=== PATIENT | female | born 1930 | race Caucasian/White ===

== ENCOUNTER 2017-11-20 11:16 | Emergency (ER) | payer OTHER ==
[2017-11-20 11:51] LABS: BASO % 0.5 % (0.0-1.0); EOS # 0.1 10^3/uL (0.0-0.50); EOS % 1.7 % (0.0-3.0); HEMATOCRIT 38.4 % (36.0-47.0); HEMOGLOBIN 13.2 g/dl (12.0-15.5); IMMATURE GRANULOCYTE % 0.2 % (0-3.0); LYMPH # 1.8 10^3/uL (1.5-4.5); LYMPH % 29.6 % (24.0-44.0); MEAN CORPUSCULAR HEMOGLOBIN 31.7 pg (27.0-33.0); MEAN CORPUSCULAR HGB CONC 34.4 g/dl (32.0-36.5); MEAN CORPUSCULAR VOLUME 92.1 fl (80.0-96.0); MONO # 0.6 10^3/uL (0.0-0.8); MONO % 9.3 % (0.0-5.0); NEUTROPHILS # 3.5 10^3/uL (1.8-7.7); NEUTROPHILS % 58.7 % (36.0-66.0); PLATELET COUNT, AUTOMATED 165 10^3/uL (150-450); RED BLOOD COUNT 4.17 10^6/uL (4.00-5.40); RED CELL DISTRIBUTION WIDTH 11.7 % (11.5-14.5)
[2017-11-20 12:03] LABS: PROTHROMBIN TIME 13.3 SECONDS (12.4-14.5)
[2017-11-20 12:16] LABS: ALBUMIN/GLOBULIN RATIO 1.05 (1.00-1.93); ALKALINE PHOSPHATASE 72 U/L (45-117); ALT/SGPT 23 U/L (12-78); ANION GAP 8 MEQ/L (8-16); AST/SGOT 21 U/L (7-37); BILIRUBIN,DIRECT 0.2 MG/DL (0.0-0.2); BILIRUBIN,TOTAL 0.6 MG/DL (0.2-1.0); BLOOD UREA NITROGEN 24 MG/DL (7-18); CALCIUM LEVEL 8.7 MG/DL (8.8-10.2); CARBON DIOXIDE LEVEL 28 MEQ/L (21-32); CHLORIDE LEVEL 102 MEQ/L (98-107); CPK CREATINE PHOSPHOKINASE 127 U/L (26-192); CREATININE FOR GFR 0.99 MG/DL (0.55-1.30); GLOMERULAR FILTRATION RATE 56.8 (>32); GLUCOSE, FASTING 115 MG/DL (70-100); LIPASE 241 U/L (73-393); POTASSIUM SERUM 4.5 MEQ/L (3.5-5.1); SODIUM LEVEL 138 MEQ/L (136-145); TOTAL PROTEIN 7.8 GM/DL (6.4-8.2); TROPONIN I < 0.02 NG/ML (< 0.10)
[2017-11-20 12:22] LABS: CK-MB VALUE MASS 3.2 NG/ML (<3.6); MB/CK RELATIVE INDEX 2.51 (< OR =4); NT-PRO BNP 475 PG/ML (<450)
[2017-11-20] MEDS: NS 500 ML IV (12:30)
[2017-11-20] MEDS: SUCRALFATE SUSP 1GM/10ML UD PO (13:05)
[2017-11-20 18:30] LABS: CPK CREATINE PHOSPHOKINASE 110 U/L (26-192); TROPONIN I < 0.02 NG/ML (< 0.10)
[2017-11-20 18:31] LABS: CK-MB VALUE MASS 2.9 NG/ML (<3.6); MB/CK RELATIVE INDEX 2.63 (< OR =4)
== END 2017-11-20 18:47 | disposition home or self-care (01) ==
LOC: M ED 11:16
DX: R07.9 Chest pain, unspecified (principal); R22.2 Localized swelling, mass and lump, trunk; I10 Essential (primary) hypertension; E87.5 Hyperkalemia; Z87.891 Personal history of nicotine dependence; Z79.82 Long term (current) use of aspirin; Z79.899 Other long term (current) drug therapy; Z88.2 Allergy status to sulfonamides
CPT/HCPCS: 71045

== ENCOUNTER 2018-01-15 11:04 | Emergency (ER) | payer OTHER ==
[2018-01-15 11:39] LABS: BASO % 0.4 % (0.0-1.0); EOS # 0.1 10^3/uL (0.0-0.50); EOS % 1.3 % (0.0-3.0); HEMATOCRIT 39.4 % (36.0-47.0); HEMOGLOBIN 13.5 g/dl (12.0-15.5); IMMATURE GRANULOCYTE % 0.3 % (0-3.0); LYMPH # 1.8 10^3/uL (1.5-4.5); LYMPH % 26.5 % (24.0-44.0); MEAN CORPUSCULAR HEMOGLOBIN 32.2 pg (27.0-33.0); MEAN CORPUSCULAR HGB CONC 34.3 g/dl (32.0-36.5); MONO # 0.5 10^3/uL (0.0-0.8); MONO % 7.2 % (0.0-5.0); NEUTROPHILS # 4.4 10^3/uL (1.8-7.7); NEUTROPHILS % 64.3 % (36.0-66.0); PLATELET COUNT, AUTOMATED 159 10^3/uL (150-450); RED BLOOD COUNT 4.19 10^6/uL (4.00-5.40); RED CELL DISTRIBUTION WIDTH 11.4 % (11.5-14.5); WHITE BLOOD COUNT 6.8 10^3/uL (4.0-10.0)
[2018-01-15 11:42] LABS: INR 1.18; PROTHROMBIN TIME 15.2 SECONDS (12.1-14.4)
[2018-01-15 11:43] LABS: PARTIAL THROMBOPLASTIN TIME 30.6 SECONDS (25.4-37.6)
[2018-01-15 11:54] LABS: ALBUMIN 3.8 GM/DL (3.2-5.2); ALBUMIN/GLOBULIN RATIO 0.93 (1.00-1.93); ALKALINE PHOSPHATASE 63 U/L (45-117); ALT/SGPT 21 U/L (12-78); ANION GAP 7 MEQ/L (8-16); AST/SGOT 22 U/L (7-37); BILIRUBIN,DIRECT 0.1 MG/DL (0.0-0.2); BILIRUBIN,TOTAL 0.5 MG/DL (0.2-1.0); BLOOD UREA NITROGEN 23 MG/DL (7-18); CALCIUM LEVEL 8.8 MG/DL (8.8-10.2); CARBON DIOXIDE LEVEL 28 MEQ/L (21-32); CHLORIDE LEVEL 101 MEQ/L (98-107); CPK CREATINE PHOSPHOKINASE 91 U/L (26-192); CREATININE FOR GFR 1.09 MG/DL (0.55-1.30); FREE T4 0.85 NG/DL (0.76-1.46); GLOMERULAR FILTRATION RATE 50.8 (>32); GLUCOSE, FASTING 105 MG/DL (70-100); LIPASE 179 U/L (73-393); SODIUM LEVEL 136 MEQ/L (136-145); TOTAL PROTEIN 7.9 GM/DL (6.4-8.2); TROPONIN I < 0.02 NG/ML (< 0.10)
[2018-01-15 12:00] LABS: CK-MB VALUE MASS 2.5 NG/ML (<3.6); MB/CK RELATIVE INDEX 2.74 (< OR =4); NT-PRO BNP 261 PG/ML (<450)
[2018-01-15] MEDS ORDERED: ISOVUE-370 76% 100ML VIAL (Q9967) As Ordered (12:39)
[2018-01-15 14:13] LABS: KETONE, URINE AUTO RFX NEGATIVE (NEGATIVE); MUCUS, URINE RFX SMALL (NEGATIVE); NITRITE, URINE AUTO RFX NEGATIVE (NEGATIVE); RBC, URINE AUTO RFX 17 /HPF (0-3); SPECIFIC GRAVITY UR AUTO RFX 1.015 (1.002-1.035); SQUAM EPITHELIAL CELL UR AURFX 0 /HPF (0-6); WBC, URINE AUTO RFX 3 /HPF (0-3)
[2018-01-15 14:14] LABS: LEUKOCYTE ESTERASE UR AUTO RFX TRACE (NEGATIVE)
[2018-01-15 17:37] LABS: CK-MB VALUE MASS 2.1 NG/ML (<3.6); CPK CREATINE PHOSPHOKINASE 99 U/L (26-192); MB/CK RELATIVE INDEX 2.12 (< OR =4); TROPONIN I < 0.02 NG/ML (< 0.10)
== END 2018-01-15 18:28 | disposition home or self-care (01) ==
LOC: M ED 11:04
DX: R07.9 Chest pain, unspecified (principal); N13.30 Unspecified hydronephrosis; E04.1 Nontoxic single thyroid nodule; I10 Essential (primary) hypertension; E78.5 Hyperlipidemia, unspecified; K21.9 Gastro-esophageal reflux disease without esophagitis; Z88.2 Allergy status to sulfonamides; Z79.899 Other long term (current) drug therapy; Z79.82 Long term (current) use of aspirin
CPT/HCPCS: Q9967

== ENCOUNTER 2019-01-19 07:33 | Day surgery (SDC) | payer MEDICARE ==
[~2019-01-19] VITALS: Ht 157.5 cm; Wt 52.2 kg
[~2019-01-19 07:33] MED LIST: ASPI-524 PO; ASPI81TA26 PO; ASPI81TA63; ATEN25TA; ATEN25TA PO; BALANCED SALT IRRIGATION SOLUTION 500ML BAG (FOR OR EYE MACHINE) As Ordered ONE; BETOPTIC; BRIM1OPD; BRIM1OPD OP; CALCTAB22; CEFUROXIME 1MG/0.1ML INTRACAMERAL INJ As Ordered ONE; CIDA500T2 PO; DUOVISC (0.50ML VISCOAT/0.55ML PROVISC) OPHTH KIT As Ordered ONE; GLUCOSAMINE/CHONDROI; LISI10TA4 PO; MIDAZOLAM INJ 2 MG/2 ML VIAL (J2250) As Ordered ONE; OFLOXACIN 0.3 % (OCUFLOX) OPTH SOL 5ML OD ONE; PEPC1TAB5 PO; PHENYLEPHRINE 2.5% OPHTH SOL 2ML OD ONE; PLAV75TA2; POVIDONE-IODINE 5% OPHTH PREP SOL 30ML As Ordered ONE; PROPARACAINE 0.5% OPHTH SOL 15ML OD ONE; SIMV10TA2; SIMV10TA2 PO; THERGRAN; TRAV04OPD; TROPICAMIDE 1% OPHTH SOLN 2ML OD ONE; TYLENOL #3; VICO5TAB; XALATAN
[2019-01-19] MEDS ORDERED: IBUP200C25 PO (08:32)
[2019-01-19] MEDS ORDERED: LIDOCAINE 0.75%/EPINEPHRINE 0.025% IN BSS 1ML SYR INTRACAMERAL (OR ONLY) As Ordered ONE (08:43)
[2019-01-19] MEDS ORDERED: DUOVISC (0.50ML VISCOAT/0.55ML PROVISC) OPHTH KIT As Ordered ONE ×2 (10:44→10:50)
[2019-01-19] MEDS ORDERED: fentaNYL 100 MCG/2 ML INJECTION (J3010) As Ordered ONE (10:49)
[2019-01-19 11:25] VITALS: BP 178/76
--- NOTE | 2019-01-24 08:35 | RO ---
DATE OF PROCEDURE: 01/19/2019 PREOPERATIVE DIAGNOSES: 1. Visually significant nuclear sclerotic cataract of the right eye. 2. Primary open angle glaucoma, moderate stage, of the right eye. POSTOPERATIVE DIAGNOSES: 1. Visually significant nuclear sclerotic cataract of the right eye. 2. Primary open angle glaucoma, moderate stage, of the right eye. PROCEDURE: 1. Extracapsular cataract removal and insertion of intraocular lens implant of the right eye, AU00T0, 23.0. 2. Transluminal canal dilatation with ab interno trabeculotomy (30 degrees of viscodilation in a counterclockwise fashion). SURGEON: Blair Villavicencio DO PRE PRESS OPERATOR: None. ANESTHESIA: Local with monitored anesthesia care (MAC). COMPLICATIONS: None. POSTOPERATIVE CONDITION: Stable. INDICATIONS FOR SURGERY: Blurred vision affecting patients activities of daily living. DESCRIPTION OF PROCEDURE: The patient was seen in the preoperative area and properly identified. The correct operative eye was identified and marked. The patient received topical anesthetic, antibiotics, and topical dilating drops. The patient was then transferred to the operating room. The correct side was re-identified, and a time-out was performed. The eye was prepped and draped in a sterile fashion. The eyelids were isolated with Tegaderm tape, and the lids were held open with an adjustable speculum. A 1.0 mm paracentesis incision was made. Intraocular preservative-free Shugarcaine was then injected into the anterior chamber. Viscoelastic was then injected into the anterior chamber through the paracentesis. Using a 2.4 mm sharp-tipped keratome, the anterior chamber was entered via a temporal clear cornea incision. A continuous curvilinear capsulorrhexis was created with Utrata forceps. Hydrodissection was performed with balanced salt solution (BSS) on a blunt cannula until the nucleus was able to rotate freely. The crystalline lens was phacoemulsified and aspirated. Irrigation/aspiration was used to remove the cortical material. Cohesive viscoelastic was placed into the capsular bag to deepen it. The implant was placed into the capsular bag and allowed to unfold. Placement was confirmed by visualizing the anterior capsulorrhexis. Additional viscoelastic was placed in the anterior chamber and on top of the cornea. The head was untaped and rotated away. The microscope was rotated to 45 degrees. A gonioprism was placed on the cornea, and the angle was visualized. The OMNI was placed inside the anterior chamber and the catheter was placed in the canal without difficulty for approximately 30 degrees. A small gush of heme was noted. No trabeculotomy was performed to risk of bleeding since the patient is on blood thinners. The head was placed face up and the microscope to 0 degrees. Irrigation/aspiration was used to remove the viscoelastic. The clear corneal incision was hydrated with BSS on a blunt cannula. The lens was well positioned. The incisions were then tested for leaks and found to be negative. The eye was then palpated for appropriate pressure and adjusted accordingly with BSS. The eyelid speculum was then carefully removed. A shield was placed over the eye. The patient tolerated the procedure well and was discharged to the recovery unit in a stable condition. RAFA
== END 2019-01-19 11:36 | disposition home or self-care (01) ==
LOC: M SDC 07:33
PROVIDERS: ATTEND Ophthalmology
DX: H25.11 Age-related nuclear cataract, right eye (principal); H40.1112 Primary open-angle glaucoma, right eye, moderate stage; I10 Essential (primary) hypertension; E78.5 Hyperlipidemia, unspecified; K21.9 Gastro-esophageal reflux disease without esophagitis; Z88.2 Allergy status to sulfonamides; Z79.82 Long term (current) use of aspirin; Z79.899 Other long term (current) drug therapy
CPT/HCPCS: 65850; 66984; J2250; J3010; V2632

== ENCOUNTER 2019-02-02 07:59 | Day surgery (SDC) | payer MEDICARE ==
[~2019-02-02] VITALS: Ht 157.5 cm; Wt 51.6 kg
[~2019-02-02 07:59] MED LIST changes: -ASPI-524 PO; +ASPI325T57 PO; +IBUP200C25 PO; +LIDOCAINE 0.75%/EPINEPHRINE 0.025% IN BSS 1ML SYR INTRACAMERAL (OR ONLY) As Ordered ONE; -MIDAZOLAM INJ 2 MG/2 ML VIAL (J2250) As Ordered ONE; -OFLOXACIN 0.3 % (OCUFLOX) OPTH SOL 5ML OD ONE; +OFLOXACIN 0.3 % (OCUFLOX) OPTH SOL 5ML OS ONE; -PHENYLEPHRINE 2.5% OPHTH SOL 2ML OD ONE; +PHENYLEPHRINE 2.5% OPHTH SOL 2ML OS ONE; -PROPARACAINE 0.5% OPHTH SOL 15ML OD ONE; +PROPARACAINE 0.5% OPHTH SOL 15ML OS ONE; -SIMV10TA2 PO; +SIMV10TA21 PO; -TROPICAMIDE 1% OPHTH SOLN 2ML OD ONE; +TROPICAMIDE 1% OPHTH SOLN 2ML OS ONE
[2019-02-02] MEDS ORDERED: fentaNYL 100 MCG/2 ML INJECTION (J3010) As Ordered ONE (08:52)
[2019-02-02] MEDS ORDERED: MIDAZOLAM INJ 2 MG/2 ML VIAL (J2250) As Ordered ONE (08:52)
[2019-02-02 09:55] VITALS: BP 163/72
[2019-02-02] MEDS ORDERED: DUOVISC (0.50ML VISCOAT/0.55ML PROVISC) OPHTH KIT As Ordered ONE (09:59)
--- NOTE | 2019-02-03 17:58 | RO ---
DATE OF PROCEDURE: 02/02/2019 PREOPERATIVE DIAGNOSES: 1. Visually significant nuclear sclerotic cataract left eye. 2. Primary open angle glaucoma of moderate stage left eye. POSTOPERATIVE DIAGNOSES: 1. Visually significant nuclear sclerotic cataract left eye. 2. Primary open angle glaucoma of moderate stage left eye. PROCEDURE: 1. Extracapsular cataract removal, insertion intraocular lens implant of the left eye, AU00T0, 22.0 D. 2. Transluminal canal dilation with ab-interno trabeculotomy, 360-degree viscodilation and 180-degree counterclockwise goniotomy. SURGEON: Blair Villavicencio DO IT SUPPORT ENGINEER: None. ANESTHESIA: Local with monitored anesthesia care (MAC). COMPLICATIONS: None. POSTOPERATIVE CONDITION: Stable. INDICATIONS FOR SURGERY: 1. Blurred vision affecting patients activities of daily living. DESCRIPTION OF PROCEDURE: The patient was seen in the preoperative area and properly identified. The correct operative eye was identified and marked. The patient received topical anesthetic, antibiotics, and topical dilating drops. The patient was then transferred to the operating room. The correct side was re-identified, and a time-out was performed. The eye was prepped and draped in a sterile fashion. The eyelids were isolated with Tegaderm tape, and the lids were held open with an adjustable speculum. A 1.0 mm paracentesis incision was made. Intraocular preservative-free Shugarcaine was then injected into the anterior chamber. Viscoelastic was then injected into the anterior chamber through the paracentesis. Using a 2.4 mm sharp-tipped keratome, the anterior chamber was entered via a temporal clear cornea incision. A continuous curvilinear capsulorrhexis was created with Utrata forceps. Hydrodissection was performed with balanced salt solution (BSS) on a blunt cannula until the nucleus was able to rotate freely. The crystalline lens was phacoemulsified and aspirated. Irrigation/aspiration was used to remove the cortical material. Cohesive viscoelastic was placed into the capsular bag to deepen it. The implant was placed into the capsular bag and allowed to unfold. Placement was confirmed by visualizing the anterior capsulorrhexis. Additional viscoelastic was placed in the anterior chamber and on top of the cornea. The head was untaped and rotated away. The microscope was rotated to 45 degrees. A gonioprism was placed on the cornea, and the angle was visualized. The OMNI catheter was placed into the trabecular meshwork without difficulty counter clockwise then retracted, re-advanced then a goniotomy was performed. The catheter was then introduced clockwise 180 degrees then removed. The head was placed face up and the microscope to 0 degrees. Irrigation/aspiration was used to remove the viscoelastic. The clear corneal incision was hydrated with BSS on a blunt cannula. The lens was well positioned. The incisions were then tested for leaks and found to be negative. The eye was then palpated for appropriate pressure and adjusted accordingly with BSS. The eyelid speculum was then carefully removed. A shield was placed over the eye. The patient tolerated the procedure well and was discharged to the recovery unit in a stable condition. (Dr. Villavicencio said to add a standard iStent template and he will edit electronically.) RAFA
== END 2019-02-02 10:12 | disposition home or self-care (01) ==
LOC: M SDC 07:59
PROVIDERS: ATTEND Ophthalmology
DX: H25.12 Age-related nuclear cataract, left eye (principal); H40.1122 Primary open-angle glaucoma, left eye, moderate stage; I10 Essential (primary) hypertension; E78.5 Hyperlipidemia, unspecified; K21.9 Gastro-esophageal reflux disease without esophagitis; Z88.2 Allergy status to sulfonamides; E04.9 Nontoxic goiter, unspecified; Z79.899 Other long term (current) drug therapy
CPT/HCPCS: 65850; 66175; 66984; J2250; J3010; V2632

== ENCOUNTER → 2020-01-29 | Outpatient (CLI) | payer MEDICARE ==
[~2020-01-29] MED LIST changes: -BALANCED SALT IRRIGATION SOLUTION 500ML BAG (FOR OR EYE MACHINE) As Ordered ONE; -CEFUROXIME 1MG/0.1ML INTRACAMERAL INJ As Ordered ONE; -DUOVISC (0.50ML VISCOAT/0.55ML PROVISC) OPHTH KIT As Ordered ONE; -LIDOCAINE 0.75%/EPINEPHRINE 0.025% IN BSS 1ML SYR INTRACAMERAL (OR ONLY) As Ordered ONE; -OFLOXACIN 0.3 % (OCUFLOX) OPTH SOL 5ML OS ONE; -PHENYLEPHRINE 2.5% OPHTH SOL 2ML OS ONE; -POVIDONE-IODINE 5% OPHTH PREP SOL 30ML As Ordered ONE; -PROPARACAINE 0.5% OPHTH SOL 15ML OS ONE; -TROPICAMIDE 1% OPHTH SOLN 2ML OS ONE
[2020-01-29 18:50] LABS: CALCIUM LEVEL 8.7 MG/DL (8.8-10.2); CREATININE FOR GFR 1.15 MG/DL (0.55-1.30); GLOMERULAR FILTRATION RATE 47.5 (>32); POTASSIUM SERUM 4.6 MEQ/L (3.5-5.1)
== END ==
LOC: M WUC 14:25
PROVIDERS: ATTEND Physician Assistant
DX: R49.22 Hyponasality (principal)

== ENCOUNTER → 2020-02-06 | Outpatient (CLI) | payer MEDICARE ==
[2020-02-06 17:15] LABS: CALCIUM LEVEL 8.8 MG/DL (8.8-10.2); CREATININE FOR GFR 1.04 MG/DL (0.55-1.30); GLOMERULAR FILTRATION RATE 53.4 (>32); POTASSIUM SERUM 4.5 MEQ/L (3.5-5.1)
== END ==
LOC: M WUC 13:59
PROVIDERS: ATTEND Physician Assistant
DX: R49.22 Hyponasality (principal)

== ENCOUNTER 2020-09-16 12:29 | Emergency (ER) | payer MEDICARE ==
[~2020-09-16] VITALS: Ht 157.5 cm; Wt 53.2 kg
[~2020-09-16 12:29] MED LIST changes: +LISI10TA22 PO; -LISI10TA4 PO
--- NOTE | 2020-09-16 13:23 | REP ---
INDICATION: trauma. COMPARISON: None TECHNIQUE: Single AP view FINDINGS: There is a comminuted proximal humeral fracture with evidence of medial angulation. The glenohumeral relationship appears somewhat maintained on this limited AP view. The bones are demineralized. No additional fractures are evident on this limited exam IMPRESSION: Proximal humeral fracture and exam limitations as described above. <Electronically signed by Jaspal Layne > 09/16/20 [id number]
--- NOTE | 2020-09-16 14:12 | REP ---
INDICATION: PT FELL COMPARISON: None. TECHNIQUE: Three views of the left shoulder. FINDINGS: There is a comminuted displaced fracture involving the proximal humeral metaphysis along with suspected dislocation at the glenohumeral joint. Osseous structures demonstrate underlying chronic osteopenia and degenerative changes. IMPRESSION: Acute comminuted angulated and displaced fracture through the proximal humeral metaphysis. <Electronically signed by Ra Redmond > 09/16/20 [id number]
--- NOTE | 2020-09-16 15:20 | REP ---
INDICATION: fracture +/- dislocation. COMPARISON: None. TECHNIQUE: Axial noncontrast images through the left shoulder with coronal and sagittal reformations. FINDINGS: There is a comminuted angulated/displaced fracture involving the humeral neck/proximal metaphysis with surrounding soft tissue posttraumatic infiltration and small joint effusion. The humeral head is in relatively normal position in relation to the glenoid. The clavicle as well as the acromioclavicular joint and sternoclavicular joint and the scapula are intact. IMPRESSION: Comminuted angulated displaced fracture involving the surgical humeral neck/metaphysis. <Electronically signed by Ra Redmond > 09/16/20 [id number]
[2020-09-16] MEDS ORDERED: HYDR-3713 PO (16:09)
[2020-09-16 16:21] VITALS: BP 179/77
== END 2020-09-16 16:50 | disposition home or self-care (01) ==
LOC: EDBD 12:29 → M ED 12:29
DX: S42.352A Displaced comminuted fracture of shaft of humerus, left arm, initial encounter for closed fracture (principal); S01.81XA Laceration without foreign body of other part of head, initial encounter; W01.0XXA Fall on same level from slipping, tripping and stumbling without subsequent striking against object, initial encounter; Y92.009 Unspecified place in unspecified non-institutional (private) residence as the place of occurrence of the external cause; Y93.9 Activity, unspecified; Y99.9 Unspecified external cause status; Z79.82 Long term (current) use of aspirin; Z79.899 Other long term (current) drug therapy; Z88.1 Allergy status to other antibiotic agents; Z88.2 Allergy status to sulfonamides

== ENCOUNTER → 2020-10-11 | Outpatient (CLI) | payer MEDICARE ==
[~2020-10-11] MED LIST changes: +HYDR-3713 PO
[2020-10-11 10:04] LABS: HEMATOCRIT 32.4 % (36.0-47.0); HEMOGLOBIN 10.5 g/dl (12.0-15.5); MEAN CORPUSCULAR HEMOGLOBIN 31.4 pg (27.0-33.0); MEAN CORPUSCULAR HGB CONC 32.4 g/dl (32.0-36.5); PLATELET COUNT, AUTOMATED 180 10^3/uL (150-450); RED BLOOD COUNT 3.34 10^6/uL (4.00-5.40); WHITE BLOOD COUNT 4.4 10^3/uL (4.0-10.0)
[2020-10-11 10:38] LABS: ALBUMIN 3.6 GM/DL (3.2-5.2); BILIRUBIN,TOTAL 0.5 MG/DL (0.2-1.0); CALCIUM LEVEL 9.1 MG/DL (8.8-10.2); CHOLESTEROL RISK RATIO 1.898 (<5); CREATININE FOR GFR 1.07 MG/DL (0.55-1.30); FREE T3 2.3 PG/ML (2.2-4.0); FREE T4 0.99 NG/DL (0.76-1.46); GLOMERULAR FILTRATION RATE 51.5 (>32); POTASSIUM SERUM 4.7 MEQ/L (3.5-5.1); THYROID STIMULATING HORMONE 2.83 uIU/ML (0.358-3.740); TOTAL PROTEIN 6.7 GM/DL (6.4-8.2)
[2020-10-11 10:39] LABS: TOTAL 25(OH) VITAMIN D 21.1 NG/ML (30.0-100.0)
== END ==
LOC: M WUC 08:33
PROVIDERS: ATTEND Family Medicine
DX: M85.9 Disorder of bone density and structure, unspecified (principal); E07.9 Disorder of thyroid, unspecified; I10 Essential (primary) hypertension

== ENCOUNTER → 2020-10-29 | Outpatient (CLI) | payer MEDICARE ==
--- NOTE | 2020-10-29 15:23 | REP ---
INDICATION: F/U FX. COMPARISON: 09/24/2020 TECHNIQUE: Five views of the left shoulder. FINDINGS: Comminuted displaced fracture through the proximal humeral metaphysis unchanged in appearance and positioning. IMPRESSION: Comminuted displaced fracture of the proximal humerus unchanged in appearance. <Electronically signed by Ra Redmond > 10/29/20 [id number]
== END ==
LOC: M SOG 14:25
PROVIDERS: ATTEND Orthopaedic Surgery Sports Medicine
DX: S42.212D Unspecified displaced fracture of surgical neck of left humerus, subsequent encounter for fracture with routine healing (principal)

== ENCOUNTER → 2021-10-20 | Outpatient (CLI) | payer MEDICARE ==
[2021-10-20 10:41] LABS: HEMATOCRIT 36.6 % (36.0-47.0); MEAN CORPUSCULAR HEMOGLOBIN 30.9 pg (27.0-33.0); MEAN CORPUSCULAR HGB CONC 32.8 g/dl (32.0-36.5); MEAN CORPUSCULAR VOLUME 94.3 fl (80.0-96.0); PLATELET COUNT, AUTOMATED 187 10^3/uL (150-450); RED BLOOD COUNT 3.88 10^6/uL (4.00-5.40); WHITE BLOOD COUNT 6.2 10^3/uL (4.0-10.0)
[2021-10-20 11:44] LABS: ALBUMIN 3.6 GM/DL (3.2-5.2); BILIRUBIN,TOTAL 0.5 MG/DL (0.2-1.0); CALCIUM LEVEL 8.6 MG/DL (8.8-10.2); CHOLESTEROL RISK RATIO 2.123 (<5); CREATININE FOR GFR 1.01 MG/DL (0.55-1.30); GLOMERULAR FILTRATION RATE 54.9 (>32); POTASSIUM SERUM 4.4 MEQ/L (3.5-5.1); THYROID STIMULATING HORMONE 1.92 uIU/ML (0.358-3.740); TOTAL PROTEIN 7.1 GM/DL (6.4-8.2)
[2021-10-20 12:31] LABS: TOTAL 25(OH) VITAMIN D 21.6 NG/ML (30.0-100.0)
== END ==
LOC: M WUC 08:36
PROVIDERS: ATTEND Family Medicine
DX: M85.9 Disorder of bone density and structure, unspecified (principal); I10 Essential (primary) hypertension